=== PATIENT | female | born 1945 | race Caucasian/White ===

== ENCOUNTER → 2016-09-21 | Outpatient (CLI) | payer MEDICARE, OTHER ==
--- NOTE | 2016-09-22 13:40 | MM ---
Reason for exam: screening (asymptomatic). Last mammogram was performed 2 years and 5 months ago. History: Patient is postmenopausal. Benign stereotactic core biopsy of the right breast, January 04, 2004. Benign excisional biopsy of the right breast, 2001. Took hormonal contraceptives for 6 years beginning at age 20. Physical Findings: A clinical breast exam by your physician is recommended on an annual basis and results should be correlated with mammographic findings. MG 3D Screening Mammo W/Cad Bilateral CC and MLO view(s) were taken. Prior study comparison: May 01, 2014, bilateral MG screening mammo w CAD. September 10, 2012, bilateral digital screening mammo w/CAD. The breast tissue is heterogeneously dense. This may lower the sensitivity of mammography. Previous mammotome biopsy in the right breast. There is no discrete abnormality. ASSESSMENT: Incomplete: need additional imaging evaluation, BI-RAD 0 RECOMMENDATION: Ultrasound of the right breast. (palpable by patient) [facility] will attempt to contact patient to return for ultrasound.
== END | disposition home or self-care (01) ==
LOC: RADMAMWWP 09:53
PROVIDERS: ATTEND Family Medicine
DX: Z12.31 Encounter for screening mammogram for malignant neoplasm of breast (principal)
CPT/HCPCS: 77063; G0202

== ENCOUNTER → 2016-10-05 | Outpatient (CLI) | payer MEDICARE, OTHER ==
--- NOTE | 2016-10-05 10:30 | USB ---
Reason for exam: additional evaluation requested from abnormal screening. History: Patient is postmenopausal. Benign stereotactic core biopsy of the right breast, January 04, 2004. Benign excisional biopsy of the right breast, 2001. Took hormonal contraceptives for 6 years beginning at age 20. Physical Findings: Nurse did not find any significant physical abnormalities on exam. US Breast RT Right breast ultrasound demonstrates a 0.5 x 0.5 x 0.1cm oval, ductal, hypoechoic lesion at 10 o'clock. These results were verbally communicated with the patient and result sheet given to the patient on 10/05/16. ASSESSMENT: Benign, BI-RAD 2 RECOMMENDATION: Return to routine screening mammogram schedule for both breasts. Manage patient on a clinical basis.
== END | disposition home or self-care (01) ==
LOC: RADUSWWP 08:13
PROVIDERS: ATTEND Family Medicine
DX: R92.8 Other abnormal and inconclusive findings on diagnostic imaging of breast (principal)

== ENCOUNTER → 2017-04-10 | Outpatient (CLI) | payer MEDICARE, OTHER ==
--- NOTE | 2017-04-10 15:07 | CT ---
EXAMINATION TYPE: CT chest wo con DATE OF EXAM: 04/10/2017 COMPARISON: NONE HISTORY: Other forms of dyspnea CT DLP: 568 mGycm, Automated exposure control for dose reduction was used. CONTRAST: Performed injected with 0 mL of Omnipaque 350. TECHNIQUE: Axial images were obtained at 5 mm thick sections. Reconstructed images are reviewed on [employer] computer in the coronal plane. FINDINGS: Portion of the thyroid visualized is normal. No suspicious lung nodules or focal infiltrates are present. Tracheobronchial tree appears normal. Ve ry subtle peripheral 0.2 cm thickening may be present in the posterior right lung base. Series 4 imag e 34. 0.2 cm punctate nodule, series 4 image 27, may be present. No enlarged mediastinal or hilar adenopathy is evident. The ascending aorta diameter at the level o f the main pulmonary artery is 3.5 cm. The main pulmonary artery diameter at the bifurcation is 3.[address] sections are obtained through the upper abdomen. Abdomen is essentially unremarkable. IMPRESSIONS: 1. Very minimal findings and otherwise normal CT chest. Follow-up exam in one year could be performed .
== END | disposition home or self-care (01) ==
LOC: RADCTMAIN 13:53
PROVIDERS: ATTEND Physician Assistant
DX: R06.09 Other forms of dyspnea (principal)
CPT/HCPCS: 71250

== ENCOUNTER → 2018-08-14 | Outpatient (CLI) | payer MEDICARE, OTHER ==
--- NOTE | 2018-08-14 11:26 | MM ---
Reason for exam: screening (asymptomatic). Last mammogram was performed 1 year and 11 months ago. History: Patient is postmenopausal. Benign stereotactic core biopsy of the right breast, January 04, 2004. Benign excisional biopsy of the right breast, 2001. Took hormonal contraceptives for 6 years beginning at age 20. Physical Findings: A clinical breast exam by your physician is recommended on an annual basis and results should be correlated with mammographic findings. MG 3D Screening Mammo W/Cad Bilateral CC and MLO view(s) were taken. Prior study comparison: September 21, 2016, bilateral MG 3d screening mammo w/cad. May 01, 2014, bilateral MG screening mammo w CAD. The breast tissue is heterogeneously dense. This may lower the sensitivity of mammography. There are benign appearing round calcifications bilaterally. Previous mammotome biopsy in the right breast. There is no discrete abnormality. ASSESSMENT: Benign, BI-RAD 2 RECOMMENDATION: Routine screening mammogram of both breasts in 1 year.
== END | disposition home or self-care (01) ==
LOC: RADMAMWWP 07:22
PROVIDERS: ATTEND Physician Assistant
DX: Z12.31 Encounter for screening mammogram for malignant neoplasm of breast (principal)
CPT/HCPCS: 77063; 77067

== ENCOUNTER 2019-03-10 12:08 | Emergency (ER) | payer MEDICARE, OTHER ==
[2019-03-10] MEDS ORDERED: LIDOCAINE 1% INJ 10MG/ML (20 ML MDV) SQ ONE (13:48)
--- NOTE | 2019-03-10 14:23 | XR ---
EXAMINATION TYPE: XR finger RT DATE OF EXAM: 03/10/2019 COMPARISON: NONE HISTORY: Pain TECHNIQUE: 3 views obtained FINDINGS: There is a hairline fracture through the tuft of the distal phalanx third digit. Hypertroph ic change of the DIP joint. No erosive changes. There also is a deformity along the volar plate of th e middle phalanx third digit. IMPRESSION: 1. Findings suggestive of hairline fracture through the tuft distal phalanx third digit. 2. Findings suggestive of a volar plate fracture base middle phalanx third digit
--- NOTE | 2019-03-10 14:24 | XR ---
EXAMINATION TYPE: XR shoulder complete RT DATE OF EXAM: 03/10/2019 COMPARISON: NONE HISTORY: Pain TECHNIQUE: Three views are submitted. FINDINGS: The osseous structures are intact. There is no acute fracture or dislocation. Arthropathy of the AC joint. IMPRESSION: 1. AC joint arthropathy
[2019-03-10] MEDS ORDERED: DIPH,PERTUS(ACELL)TETVAC-LF 0.5 ML VIAL IM ONE (14:55)
[2019-03-10] MEDS ORDERED: ceFAZolin 1,000 MG VIAL (IM USE) IM STA (14:55)
--- NOTE | 2019-03-10 15:37 | ED ---
Wound/Laceration HPI - General Chief Complaint: Wound/Laceration Stated Complaint: trip & fall/finger lac & shoulder pain Time Seen by Provider: 03/10/19 12:54 Source: patient, RN notes reviewed Mode of arrival: ambulatory Limitations: no limitations - History of Present Illness Initial Comments: 73-year-old female presents to the emergency department for chief clear laceration to the right third digit. Patient was out walking when she tripped and fell forward onto her right finger. Patient also complaining of right shoulder pain. Patient did not hit her head or sustain any other injuries. Patient has not attempted incision history denies blood thinner use.Patient has no other complaints at this time including shortness of breath, chest pain, abdominal pain, nausea or vomiting, headache, or visual changes. - Related Data Home Medications Medication Instructions Recorded Confirmed Atorvastatin [Lipitor] 10 mg PO HS 04/07/15 04/09/15 Lisinopril [Prinivil] 10 mg PO HS 04/07/15 04/09/15 Previous Rx's Medication Instructions Recorded Cephalexin [Keflex] 500 mg PO Q6HR 7 Days #28 cap 03/10/19 Allergies Allergy/AdvReac Type Severity Reaction Status Date / Time No Known Allergies Allergy Verified 04/07/15 10:24 Review of Systems ROS Statement: Those systems with pertinent positive or pertinent negative responses have been documented in the HPI. ROS Other: All systems not noted in ROS Statement are negative. Past Medical History Past Medical History: Hyperlipidemia, Hypertension Additional Past Medical History / Comment(s): HX COLON POLYPS History of Any Multi-Drug Resistant Organisms: None Reported Past Surgical History: Hysterectomy Additional Past Surgical History / Comment(s): COLONOSCOPY Past Anesthesia/Blood Transfusion Reactions: No Reported Reaction Past Psychological History: No Psychological Hx Reported Smoking Status: Never smoker Past Alcohol Use History: None Reported Past Drug Use History: None Reported - Past Family History Mother Family Medical History: Cancer Additional Family Medical History / Comment(s): ESOPHAGUS Father Family Medical History: Cancer Additional Family Medical History / Comment(s): LUNG,BRAIN General Exam - General Exam Comments Initial Comments: Right shoulder: Patient has 90 flexion and abduction of the right shoulder. Radial pulse 2+. No significant tenderness or no abrasions or lacerations noted. Sensation intact in the right upper extremity. Limitations: no limitations General appearance: alert, in no apparent distress Head exam: Present: atraumatic, normocephalic, normal inspection Eye exam: Present: normal appearance, PERRL, EOMI. Absent: scleral icterus, conjunctival injection, periorbital swelling ENT exam: Present: normal exam, mucous membranes moist Neck exam: Present: normal inspection. Absent: tenderness, meningismus, lymphadenopathy Respiratory exam: Present: normal lung sounds bilaterally. Absent: respiratory distress, wheezes, rales, rhonchi, stridor Cardiovascular Exam: Present: regular rate, normal rhythm, normal heart sounds. Absent: systolic murmur, diastolic murmur, rubs, gallop, clicks GI/Abdominal exam: Present: soft, normal bowel sounds. Absent: distended, tenderness, guarding, rebound, rigid Extremities exam: Present: full ROM (Full range of motion of the right third digit including MCP, PIP, DIP joints.), normal capillary refill (Capillary refill less than 2 seconds in the right upper extremity including the third finger.), other (Patient has a 1 cm laceration noted to the distal aspect of the right third digit. Nail bed appears intact.). Absent: tenderness, pedal edema, joint swelling, calf tenderness Back exam: Absent: CVA tenderness (R), CVA tenderness (L), vertebral tenderness Neurological exam: Present: alert Course Vital Signs 03/10/19 12:13 Temperature 97.9 F Pulse Rate 80 Respiratory 18 Rate Blood Pressure 154/82 O2 Sat by Pulse 97 Oximetry Medical Decision Making - Medical Decision Making X-ray of the right finger shows a hairline fracture through the tuft of the distal phalanx of the right finger as well as volar plate fracture of the base of the middle phalanx third digit. I do not think that superficial laceration is communicating with this and it is unlikely to be open fracture. However patient was treated with Ancef and tetanus given the laceration. She will also be treated with oral antibiotics. Wound was repaired using simple interrupted sutures. She will follow up with orthopedics. She'll return here if she has any worsening symptoms. These were discussed with her including those for infection. Disposition Clinical Impression: Laceration, Fracture of distal phalanx of finger of right hand Disposition: HOME SELF-CARE Condition: Good Instructions (If sedation given, give patient instructions): Laceration (ED), Care For Your Stitches (ED) Additional Instructions: Please keep the area clean. Do not submerge it in water for 24-48 hours. Wear splint. Take antibiotic as directed starting tomorrow. Follow up with orthopedics in one to 2 days. Return to the emergency department in 7-10 days for suture removal. Return earlier for any signs of infection such as spreading streaking redness, drainage, or fever. Prescriptions: Cephalexin [Keflex] 500 mg PO Q6HR 7 Days #28 cap Is patient prescribed a controlled substance at d/c from ED?: No Referrals: Champ Nieto MD [Primary Care Provider] - 1-2 days Sandro Ty DO [Medical Doctor] - 1-2 days Time of Disposition: 15:34
[2019-03-10 15:52] VITALS: BP 161/75; PULSE 84; RESP 16; TEMP 98
== END 2019-03-10 15:50 | disposition home or self-care (01) ==
LOC: EC 12:08
DX: S62.632A Displaced fracture of distal phalanx of right middle finger, initial encounter for closed fracture (principal); S61.212A Laceration without foreign body of right middle finger without damage to nail, initial encounter; Z23 Encounter for immunization; I10 Essential (primary) hypertension; E78.5 Hyperlipidemia, unspecified; Z79.899 Other long term (current) drug therapy; W01.0XXA Fall on same level from slipping, tripping and stumbling without subsequent striking against object, initial encounter; Y93.01 Activity, walking, marching and hiking
CPT/HCPCS: 73030; 73140; 90715; 99283; 90471; 96372; 12001; J0690; J2001

== ENCOUNTER → 2019-04-28 | Outpatient (CLI) | payer MEDICARE, OTHER | END | disposition home or self-care (01) | LOC: RADECHMAIN 11:54 | PROVIDERS: ATTEND Family Medicine | DX: Z53.9 Procedure and treatment not carried out, unspecified reason (principal) ==

== ENCOUNTER → 2019-08-08 | Outpatient (CLI) | payer MEDICARE, OTHER ==
--- NOTE | 2019-08-21 14:11 | EM ---
EVENT MONITOR 7 DAY EVENT MONITOR: The event monitor was reviewed. Predominant rhythm appears to be sinus. There were occasional supraventricular ectopic beats noted. There was one episode of paroxysmal atrial tachycardia noted of about 4-5 beats in a row. Most of the rhythm that was captured was by auto capture. There was no evidence of any ventricular ectopic beats. There was some blocked PACs. This is an unremarkable seven-day event monitor with predominant sinus rhythm. Short run of PAT. No evidence of any ventricular ectopy, no bradycardia and no significant symptoms reported. MMODL / IJN: [id number] /
== END | disposition home or self-care (01) ==
LOC: RADECHMAIN 10:35
PROVIDERS: ATTEND Family Medicine
DX: R06.00 Dyspnea, unspecified (principal)
CPT/HCPCS: 93270

== ENCOUNTER 2020-04-07 11:26 | Observation (INO) | payer MEDICARE, OTHER ==
[2020-04-07] MEDS ORDERED: PANTOPRAZOLE 40 MG/10 ML VIAL IVP STA (12:01)
[2020-04-07] MEDS ORDERED: SODIUM CHLORIDE 0.9% 500 ML 500 ML IV ONE (12:02)
--- NOTE | 2020-04-07 12:41 | ED ---
GI Bleed HPI - General Chief complaint: GI Bleed Stated complaint: GI Bleed/abd pain Time Seen by Provider: 04/07/20 11:53 Source: patient Mode of arrival: ambulatory Limitations: no limitations - History of Present Illness Initial comments: 74yo female presenting for multiple epsidoes of bright red blood wtih lower abdominal cramping. pt states she has had lower abdominal cramping for past day as well as bright red all blood stools. she states she has had multiple yesterday and again this AM and decided to come to the ER. Pt states that her lower abdomen feels full. Patient denies nausea, vomiting, fevers, denies known history of diverticulosis. Patient denies fevers chills nausea or vomiting. Denies lightheadedness presyncope palpitations cold intolerance, dark tarry stools and emesis. Patient does not appear toxic no distress she is very pleasant - Related Data Home Medications Medication Instructions Recorded Confirmed Atorvastatin [Lipitor] 10 mg PO HS 04/07/15 04/07/20 Lisinopril [Prinivil] 10 mg PO HS 04/07/15 04/07/20 Ascorbic Acid [Vitamin C] 500 mg PO DAILY 04/07/20 04/07/20 Calcium Carbonate [Calcium] 600 mg PO DAILY 04/07/20 04/07/20 Cholecalciferol [Vitamin D3 (25 1,000 unit PO DAILY 04/07/20 04/07/20 Mcg = 1000 Iu)] Allergies Allergy/AdvReac Type Severity Reaction Status Date / Time No Known Allergies Allergy Verified 04/07/20 14:46 Review of Systems ROS Statement: Those systems with pertinent positive or pertinent negative responses have been documented in the HPI. ROS Other: All systems not noted in ROS Statement are negative. Past Medical History Past Medical History: Hyperlipidemia, Hypertension Additional Past Medical History / Comment(s): HX COLON POLYPS History of Any Multi-Drug Resistant Organisms: None Reported Past Surgical History: Hysterectomy Additional Past Surgical History / Comment(s): COLONOSCOPY Past Anesthesia/Blood Transfusion Reactions: No Reported Reaction Past Psychological History: No Psychological Hx Reported Smoking Status: Never smoker Past Alcohol Use History: None Reported Past Drug Use History: None Reported - Past Family History Mother Family Medical History: Cancer Additional Family Medical History / Comment(s): ESOPHAGUS Father Family Medical History: Cancer Additional Family Medical History / Comment(s): LUNG,BRAIN General Exam - General Exam Comments Initial Comments: General: The patient is awake and alert, in no distress Eye: +3 mm pupils are equal, round and reactive to light, extra-ocular movements are intact. No nystagmus. There is normal conjunctiva bilaterally. No signs of icterus. Ears, nose, mouth and throat: There are moist mucous membranes and no oral lesions. Neck: The neck is supple, there is no tenderness or JVD. Cardiovascular: There is a regular rate and rhythm. No murmur, rub or gallop is appreciated. Respiratory: Lungs are clear to auscultation, respirations are non-labored, breath sounds are equal. No wheezes, stridor, rales, or rhonchi. Gastrointestinal: Soft, non-distended, lower abdominal pain to palpation, abdomen without masses or organomegaly noted. There is no rebound or guarding present : faint bright red blood on digit mixed with stool. no hemorrhoids Musculoskeletal: Normal ROM, no tenderness. Strength 5/5. Sensation intact. Radial pulses equal bilaterally 2+. Neurological: A&O x 3. CN II-XII intact, There are no obvious motor or sensory deficits. Coordination appears grossly intact. Speech is normal. Skin: Skin is warm and dry and no rashes or lesions are noted. Psychiatric: Cooperative, appropriate mood & affect, normal judgment. Limitations: no limitations Course Vital Signs 04/07/20 04/07/20 04/07/20 11:47 12:57 14:29 Temperature 98.2 F Pulse Rate 95 78 70 Respiratory 18 18 18 Rate Blood Pressure 144/81 138/77 130/70 O2 Sat by Pulse 99 98 99 Oximetry Medical Decision Making - Medical Decision Making HgB stable. bright red blood on exam. CT revealed a diffuse severe colitis. Patient denies fever she has mild leukocytosis. Patient denies any nausea vomiting. Patient was placed on Zosyn. Patient will be admitted for GI consultation and hemodynamic monitoring. Dr. Weeks accepted patient. Dr Menjivar agreeable to care plan. - Lab Data Result diagrams: 04/07/20 12:31 04/07/20 12:31 Lab Results 04/07/20 04/07/20 04/07/20 Range/Units 12:31 12:31 12:31 WBC 11.7 H (3.8-10.6) k/uL RBC 4.84 (3.80-5.40) m/uL Hgb 15.4 (11.4-16.0) gm/dL Hct 44.5 (34.0-46.0) % MCV 91.8 (80.0-100.0) fL MCH 31.8 (25.0-35.0) pg MCHC 34.6 (31.0-37.0) g/dL RDW 13.0 (11.5-15.5) % Plt Count 240 (150-450) k/uL MPV 7.0 Neutrophils % 78 % Lymphocytes % 14 % Monocytes % 5 % Eosinophils % 2 % Basophils % 1 % Neutrophils # 9.1 H (1.3-7.7) k/uL Lymphocytes # 1.6 (1.0-4.8) k/uL Monocytes # 0.6 (0-1.0) k/uL Eosinophils # 0.2 (0-0.7) k/uL Basophils # 0.1 (0-0.2) k/uL PT 10.2 (9.0-12.0) sec INR 0.9 (<1.2) APTT 22.2 (22.0-30.0) sec Sodium (137-145) mmol/L Potassium (3.5-5.1) mmol/L Chloride (98-107) mmol/L Carbon Dioxide (22-30) mmol/L Anion Gap mmol/L BUN (7-17) mg/dL Creatinine (0.52-1.04) mg/dL Est GFR (CKD-EPI)AfAm (>60 ml/min/1.73 sqM) Est GFR (CKD-EPI)NonAf (>60 ml/min/1.73 sqM) Glucose (74-99) mg/dL Plasma Lactic Acid Emerson (0.7-2.0) mmol/L Calcium (8.4-10.2) mg/dL Magnesium (1.6-2.3) mg/dL Total Bilirubin (0.2-1.3) mg/dL AST (14-36) U/L ALT (4-34) U/L Alkaline Phosphatase (38-126) U/L Troponin I (0.000-0.034) ng/mL Total Protein (6.3-8.2) g/dL Albumin (3.5-5.0) g/dL Stool Occult Blood Positive H (Negative) Blood Type Blood Type Recheck Bld Type Recheck Status Antibody Screen Spec Expiration Date 04/07/20 04/07/20 04/07/20 Range/Units 12:31 12:31 12:31 WBC (3.8-10.6) k/uL RBC (3.80-5.40) m/uL Hgb (11.4-16.0) gm/dL Hct (34.0-46.0) % MCV (80.0-100.0) fL MCH (25.0-35.0) pg MCHC (31.0-37.0) g/dL RDW (11.5-15.5) % Plt Count (150-450) k/uL MPV Neutrophils % % Lymphocytes % % Monocytes % % Eosinophils % % Basophils % % Neutrophils # (1.3-7.7) k/uL Lymphocytes # (1.0-4.8) k/uL Monocytes # (0-1.0) k/uL Eosinophils # (0-0.7) k/uL Basophils # (0-0.2) k/uL PT (9.0-12.0) sec INR (<1.2) APTT (22.0-30.0) sec Sodium 141 (137-145) mmol/L Potassium 4.2 (3.5-5.1) mmol/L Chloride 108 H (98-107) mmol/L Carbon Dioxide 24 (22-30) mmol/L Anion Gap 9 mmol/L BUN 21 H (7-17) mg/dL Creatinine 0.76 (0.52-1.04) mg/dL Est GFR (CKD-EPI)AfAm >90 (>60 ml/min/1.73 sqM) Est GFR (CKD-EPI)NonAf 79 (>60 ml/min/1.73 sqM) Glucose 137 H (74-99) mg/dL Plasma Lactic Acid Emerson 1.3 (0.7-2.0) mmol/L Calcium 10.1 (8.4-10.2) mg/dL Magnesium 2.1 (1.6-2.3) mg/dL Total Bilirubin 0.5 (0.2-1.3) mg/dL AST 51 H (14-36) U/L ALT 52 H (4-34) U/L Alkaline Phosphatase 71 (38-126) U/L Troponin I <0.012 (0.000-0.034) ng/mL Total Protein 7.9 (6.3-8.2) g/dL Albumin 4.6 (3.5-5.0) g/dL Stool Occult Blood (Negative) Blood Type Blood Type Recheck Bld Type Recheck Status Antibody Screen Spec Expiration Date 04/07/20 Range/Units 12:31 WBC (3.8-10.6) k/uL RBC (3.80-5.40) m/uL Hgb (11.4-16.0) gm/dL Hct (34.0-46.0) % MCV (80.0-100.0) fL MCH (25.0-35.0) pg MCHC (31.0-37.0) g/dL RDW (11.5-15.5) % Plt Count (150-450) k/uL MPV Neutrophils % % Lymphocytes % % Monocytes % % Eosinophils % % Basophils % % Neutrophils # (1.3-7.7) k/uL Lymphocytes # (1.0-4.8) k/uL Monocytes # (0-1.0) k/uL Eosinophils # (0-0.7) k/uL Basophils # (0-0.2) k/uL PT (9.0-12.0) sec INR (<1.2) APTT (22.0-30.0) sec Sodium (137-145) mmol/L Potassium (3.5-5.1) mmol/L Chloride (98-107) mmol/L Carbon Dioxide (22-30) mmol/L Anion Gap mmol/L BUN (7-17) mg/dL Creatinine (0.52-1.04) mg/dL Est GFR (CKD-EPI)AfAm (>60 ml/min/1.73 sqM) Est GFR (CKD-EPI)NonAf (>60 ml/min/1.73 sqM) Glucose (74-99) mg/dL Plasma Lactic Acid Emerson (0.7-2.0) mmol/L Calcium (8.4-10.2) mg/dL Magnesium (1.6-2.3) mg/dL Total Bilirubin (0.2-1.3) mg/dL AST (14-36) U/L ALT (4-34) U/L Alkaline Phosphatase (38-126) U/L Troponin I (0.000-0.034) ng/mL Total Protein (6.3-8.2) g/dL Albumin (3.5-5.0) g/dL Stool Occult Blood (Negative) Blood Type B Positive Blood Type Recheck B Pos Bld Type Recheck Status No Antibody Screen NEGATIVE Spec Expiration Date 04/10/2020 - 2330 Disposition Clinical Impression: GI bleed, Colitis Disposition: ADMITTED IP TO THIS [facility] Condition: Stable Is patient prescribed a controlled substance at d/c from ED?: No Time of Disposition: 14:48 Decision to Admit Reason: Admit from EC Decision Date: 04/07/20 Decision Time: 14:48
[2020-04-07 12:48] LABS: Basophils # (A) 0.1 k/uL (0-0.2); Basophils % (A) 1 %; Eosinophils # (A) 0.2 k/uL (0-0.7); Eosinophils % (A) 2 %; HCT 44.5 % (34.0-46.0); HGB 15.4 gm/dL (11.4-16.0); Lymphocytes # (A) 1.6 k/uL (1.0-4.8); Lymphocytes % (A) 14 %; MCH 31.8 pg (25.0-35.0); MCHC 34.6 g/dL (31.0-37.0); MCV 91.8 fL (80.0-100.0); Monocytes # (A) 0.6 k/uL (0-1.0); Monocytes % (A) 5 %; Neutrophils # (A) 9.1 k/uL (1.3-7.7); Neutrophils % (A) 78 %; Platelet Count 240 k/uL (150-450); RBC 4.84 m/uL (3.80-5.40); WBC 11.7 k/uL (3.8-10.6)
[2020-04-07] MEDS: SODIUM CHLORIDE 0.9% 1,000 ML IV SCH ×2 (12:50→20:56)
[2020-04-07 12:57] LABS: INR 0.9 (<1.2); Partial Thromboplastin Time 22.2 sec (22.0-30.0); Prothrombin Time 10.2 sec (9.0-12.0)
[2020-04-07 13:06] LABS: ALT 52 U/L (4-34); AST 51 U/L (14-36); African American GFR (CKD) >90 (>60 ml/min/1.73 sqM); Albumin 4.6 g/dL (3.5-5.0); Alkaline Phosphatase 71 U/L (38-126); Anion Gap 9 mmol/L; Blood Urea Nitrogen 21 mg/dL (7-17); Calcium 10.1 mg/dL (8.4-10.2); Carbon Dioxide 24 mmol/L (22-30); Chloride 108 mmol/L (98-107); Glucose 137 mg/dL (74-99); Magnesium 2.1 mg/dL (1.6-2.3); Non-African American GFR(CKD) 79 (>60 ml/min/1.73 sqM); Potassium 4.2 mmol/L (3.5-5.1); Sodium 141 mmol/L (137-145); Total Bilirubin 0.5 mg/dL (0.2-1.3); Total Protein 7.9 g/dL (6.3-8.2)
--- NOTE | 2020-04-07 14:37 | CT ---
EXAMINATION TYPE: CT abdomen pelvis w con DATE OF EXAM: 04/07/2020 HISTORY: Bright red rectal bleeding and abdominal pain. CT DLP: 1018.7mGycm Automated Exposure Control for Dose Reduction was Utilized. CONTRAST: CT scan of the abdomen and pelvis is performed without oral but with IV Contrast, patient injected wi th 100 mL of Isovue 300. COMPARISON: None. FINDINGS: LUNG BASES: No significant abnormality is appreciated. LIVER/GB: Visualized liver is heterogeneously hypodense consistent with marked diffuse fatty infiltra tion. PANCREAS: No significant abnormality is seen. SPLEEN: No significant abnormality is seen. ADRENALS: No significant abnormality is seen. KIDNEYS: Symmetric cortical medullary uptake and excretion . Occasionally subcentimeter thin-walled c ysts scattered throughout the left kidney. No left-sided hydronephrosis. Fullness right renal pelvis without calyceal dilatation. Mild proximal right-sided hydroureter. Occasional phlebolith along cours e of the right ureter. No obstructing calculus. No intraluminal calculus in bladder. BOWEL: Suboptimal evaluation without enteric contrast. Stomach poorly distended and is thus suboptima lly evaluated. Some scattered colonic diverticula. Mild to moderate wall thickening beginning hepatic flexure into the distal transverse colon. There is more moderate to severe wall thickening distal tr ansverse colon through the splenic flexure involving entire left colon. More mild wall thickening is seen in the sigmoid rectal colon. Mild fat stranding surrounds left colon. No free air. No well-forme d fluid collection. UTERUS/ADNEXA: Uterus is surgically absent with scattered bilateral pelvic phleboliths. LYMPH NODES: Prominent precaval lymph node near portal confluence measuring 2.0 x 1.2 cm/31. No addit ional greater than 1 cm lymph nodes. OSSEOUS STRUCTURES: Hogl-fo-usmdeocy axial joint space loss and acetabular spurring of both hips. Mil q-ni-usueuvry multilevel spurring in the spine. OTHER: No significant additional abnormality is seen. IMPRESSION: 1. An uncomplicated fairly moderate acute diffuse colitis with greatest involvement in the distal tra nsverse and entire left colon. Differential includes infectious and inflammatory etiologies. Correlat e clinically.
[2020-04-07] MEDS ORDERED: PIPERACILLIN-TAZOBACTAM 3.375 GM in SODIUM CHLORIDE 0.9% 100 ML IVPB STA (14:38)
[2020-04-07] MEDS ORDERED: NALOXONE 0.4 MG/ML 1 ML VIAL IV PRN (14:48)
[2020-04-07] MEDS ORDERED: MORPHINE SULFATE 2 MG/ML SYRINGE IVP PRN (14:49)
[2020-04-07] MEDS ORDERED: ONDANSETRON 4 MG/2 ML VIAL IVP PRN (14:49)
[2020-04-07 16:22] LABS: Basophils % (A) 0 %; Eosinophils # (A) 0.2 k/uL (0-0.7); Eosinophils % (A) 2 %; HCT 41.5 % (34.0-46.0); HGB 14.1 gm/dL (11.4-16.0); Lymphocytes # (A) 2.2 k/uL (1.0-4.8); Lymphocytes % (A) 20 %; MCH 31.4 pg (25.0-35.0); MCHC 33.9 g/dL (31.0-37.0); MCV 92.6 fL (80.0-100.0); Mean Platelet Volume 7.3; Monocytes # (A) 0.5 k/uL (0-1.0); Monocytes % (A) 4 %; Neutrophils # (A) 7.8 k/uL (1.3-7.7); Neutrophils % (A) 72 %; Platelet Count 195 k/uL (150-450); RBC 4.48 m/uL (3.80-5.40); WBC 10.9 k/uL (3.8-10.6)
[2020-04-07] MEDS: ATORVASTATIN 10 MG TAB PO SCH (20:55)
[2020-04-07] MEDS: lisinopriL 10 MG TAB PO SCH (20:55)
[2020-04-08] MEDS: SODIUM CHLORIDE 0.9% 1,000 ML IV SCH ×3 (03:51→20:06)
[2020-04-08 11:15] LABS: Basophils % (A) 0 %; Eosinophils # (A) 0.3 k/uL (0-0.7); Eosinophils % (A) 3 %; HGB 13.5 gm/dL (11.4-16.0); Lymphocytes # (A) 1.6 k/uL (1.0-4.8); Lymphocytes % (A) 19 %; MCHC 32.2 g/dL (31.0-37.0); MCV 93.3 fL (80.0-100.0); Mean Platelet Volume 7.4; Monocytes # (A) 0.3 k/uL (0-1.0); Monocytes % (A) 3 %; Neutrophils # (A) 5.9 k/uL (1.3-7.7); Neutrophils % (A) 72 %; Platelet Count 209 k/uL (150-450); RDW 13.4 % (11.5-15.5); WBC 8.2 k/uL (3.8-10.6)
[2020-04-08] MEDS: CALCIUM CARBONATE 500 MG CHEWABLE PO SCH (12:11)
[2020-04-08] MEDS: CHOLECALCIFEROL 1,000 UNIT TAB PO SCH (12:11)
[2020-04-08] MEDS: ASCORBIC ACID 500 MG TAB PO SCH (12:11)
--- NOTE | 2020-04-08 12:26 | CONS ---
CONSULTATION DATE OF DICTATION: 04/08/2020 REASON FOR CONSULTATION: Acute colitis. HISTORY OF PRESENT ILLNESS: The patient is a 74-year-old pleasant white female came to the emergency room complaining of acute onset of lower abdominal pain that started on Sunday evening. The pain continued to progressively get worse followed by multiple episodes of bright red blood per rectum and hence came to the emergency room yesterday for further evaluation. She denies any fever, chills, or night sweats. She never had these symptoms in the past. In the ER, she had a CT of the abdomen and pelvis done that showed there was mild to moderate wall thickening beginning at the hepatic flexure into the distal transverse colon and the entire left colon consistent with acute colitis. In the meantime, patient is doing much better. This morning her abdominal pain has improved. She had only 2 bowel movements this morning. Yesterday she had about 3 or 4 bloody bowel movements. She never had these symptoms in the past. Her last colonoscopy in 2015 showed diverticulosis. She denies any recent antibiotic use. MEDICATIONS: Medications at home include Prinivil, calcium, Lipitor, vitamin C, and vitamin D3. PAST MEDICAL HISTORY: Hypertension, hyperlipidemia. ALLERGIES: No known drug allergies. SOCIAL HISTORY: No smoking, no alcohol use. FAMILY HISTORY: Unremarkable. PAST SURGICAL HISTORY: Colonoscopy 2016 and hysterectomy. REVIEW OF SYSTEMS: CARDIOPULMONARY: No chest pain or shortness of breath. GENITOURINARY: No dysuria or hematuria. MUSCULOSKELETAL: Unremarkable. SKIN: Unremarkable. ENDOCRINE: Unremarkable. PSYCHIATRIC: Unremarkable. NEUROLOGY: Unremarkable. ENT/VISION: Unremarkable. CONSTITUTIONAL: No recent weight loss. No fever, chills, night sweats. PHYSICAL EXAMINATION: Blood pressure 131/75, pulse rate 60, temperature 97.6. HEENT EXAMINATION: Unremarkable. Conjunctivae pink. Sclerae anicteric. Oral cavity no lesions. NECK: No JVD or lymph node enlargement. CHEST: Clear to auscultation. HEART: Regular rate and rhythm. ABDOMEN: Soft. There was very minimal tenderness in the left lower quadrant area. Rest of the abdomen was benign. Bowel sounds are positive. EXTREMITIES: No pedal edema. SKIN: No rashes. NEUROLOGIC: Alert and oriented x3. No focal deficits. LABS: WBC 11.7, hemoglobin 15.4, platelets normal. Basic metabolic panel is within normal limits. BUN 21, creatinine 0.76. AST and ALT are 51 and 52 respectively and stool occult blood was positive. CT of the abdomen showed [id number] wall thickening involving the hepatic flexure all the way to the transverse colon and the left colon consistent with acute colitis. IMPRESSION: This is a lady who presents with acute onset of lower abdominal pain followed by rectal bleeding for the last 2 days duration and CAT scan showing thickening of the transverse colon and left colon all consistent with acute colitis most likely ischemic etiology, doubt infectious colitis. The patient symptoms have significantly improved and she is feeling much better. The bleeding has resolved. Hemoglobin remains stable at 14.1 g/dL. Last colonoscopy done by me in April 2015 showed evidence of scattered sigmoid diverticulosis but no evidence of colorectal neoplasia. RECOMMENDATIONS: 1. Advance diet as tolerated. 2. Continue symptomatic and supportive care. 3. If she has no further episodes of bleeding, she can be discharged home later today or tomorrow with outpatient followup in a couple of weeks and we will plan on a colonoscopy on outpatient basis. The plan was discussed with the patient. She is agreeable to it. Thank you for this consultation. MMODL / IJN: [id number] /
[2020-04-08] MEDS: PIPERACILLIN-TAZOBACTAM 3.375 GM in SODIUM CHLORIDE 0.9% 100 ML IVPB SCH ×2 (13:29→20:12)
--- NOTE | 2020-04-08 18:13 | P.HPIM ---
History of Present Illness H&P Date: 04/08/20 Chief Complaint: Bright red blood per rectum History of presenting complaint: This is a very pleasant 74-year-old patient of . Chronic stable medical conditions include hypertension, hyperlipidemia, insomnia. 2 days ago she started having abdominal pain on and off. Then she noticed big clots per rectum. Having chills and breaking out in no perspiration. Decided to come to the ER. Computed tomography scan did show colitis. Given IV Zosyn. No nausea vomiting. Feeling better this morning. Review of systems: GEN.: Tired EYES: None HEENT: None NECK: None RESPIRATORY: None CARDIOVASCULAR: None GASTROINTESTINAL: As above GENITOURINARY: None MUSCULOSKELETAL: None LYMPHATICS: None HEMATOLOGICAL: None PSYCHIATRY: None NEUROLOGICAL: Trouble sleeping Past medical history to include: Hypertension, hyperlipidemia, colon polyps, insomnia Social history: Lives alone. Does not smoke or drink alcohol. Physical examination: VITAL SIGNS: 98.2, 95, 18, 144/81, 99% room air GENERAL: BMI 32.1, laying in bed, not in distress. EYES: Pupils equal. Conjunctiva normal. HEENT: External appearance of nose and ears normal, oral cavity grossly normal. NECK: JVD not raised; masses not palpable. HEART: First and second heart sounds are normal; no edema. LUNGS: Respiratory rate normal; clear to auscultation. ABDOMEN: Soft, mild tenderness, no guarding rigidity, liver spleen not palpable, no masses palpable. PSYCH: Alert and oriented x3; mood and affect normal. NEUROLOGICAL: Cranial nerves grossly intact; no facial asymmetry, power and sensation grossly intact. LYMPHATICS: No lymph nodes palpable in the axilla and neck INVESTIGATIONS, reviewed in the clinical context: White count 11.7 hemoglobin 13.4 platelets 240 potassium 4.2 creatinine 0.76 Stool occult positive Computed tomography scan of the abdomen and pelvis with contrast-some scattered colonic diverticula. Mild to moderate wall thickening beginning hepatic flexure into the distal transverse colon. More moderate to severe wall thickening distal transverse colon, through the splenic flexure involving the entire left colon. Mild fat stranding. No free air. No fluid collection. Assessment: -Acute colitis suspect ischemic cannot rule out infective cause. -Essential hypertension -Hyperlipidemia -Obesity BMI 32.1 Plan: Patient started IV Zosyn. IV fluids. Home medications resumed. GI consulted. Patient is put on a clear liquid diet. Care was discussed with the patient question also. Past Medical History Past Medical History: Hyperlipidemia, Hypertension Additional Past Medical History / Comment(s): HX COLON POLYPS History of Any Multi-Drug Resistant Organisms: None Reported Past Surgical History: Hysterectomy Additional Past Surgical History / Comment(s): COLONOSCOPY Past Anesthesia/Blood Transfusion Reactions: No Reported Reaction Past Psychological History: No Psychological Hx Reported Smoking Status: Never smoker Past Alcohol Use History: None Reported Past Drug Use History: None Reported - Past Family History Mother Family Medical History: Cancer Additional Family Medical History / Comment(s): ESOPHAGUS Father Family Medical History: Cancer Additional Family Medical History / Comment(s): LUNG,BRAIN Medications and Allergies Home Medications Medication Instructions Recorded Confirmed Type Atorvastatin [Lipitor] 10 mg PO HS 04/07/15 04/07/20 History Lisinopril [Prinivil] 10 mg PO HS 04/07/15 04/07/20 History Ascorbic Acid [Vitamin C] 500 mg PO DAILY 04/07/20 04/07/20 History Calcium Carbonate [Calcium] 600 mg PO DAILY 04/07/20 04/07/20 History Cholecalciferol [Vitamin D3 (25 1,000 unit PO DAILY 04/07/20 04/07/20 History Mcg = 1000 Iu)] Allergies Allergy/AdvReac Type Severity Reaction Status Date / Time No Known Allergies Allergy Verified 04/07/20 14:46 Physical Exam Vitals: Vital Signs Temp Pulse Pulse Resp BP BP Pulse Ox 04/08/20 07:56 97.6 F 60 14 131/75 98 04/08/20 03:55 97.7 F 61 121/69 97 04/07/20 19:45 97.5 F L 75 148/74 99 04/07/20 16:33 97.6 F 82 14 156/81 95 04/07/20 16:00 98.9 F 70 18 141/79 99 04/07/20 14:29 70 18 130/70 99 04/07/20 12:57 78 18 138/77 98 04/07/20 11:47 98.2 F 95 18 144/81 99 Intake and Output 04/07/20 04/08/20 04/08/20 22:59 06:59 14:59 Intake Total 1650 Output Total 120 Balance 1530 Intake: Amount of Fluid Infused ( 1000 ml) Oral 650 Output: Stool 120 Other: Voiding Method Toilet Toilet # Voids 1 2 1 # Bowel Movements 1 Weight 77.111 kg Results CBC & Chem 7: 04/08/20 10:54 04/07/20 12:31 Labs: Abnormal Lab Results - Last 24 Hours (Table) 04/07/20 04/07/20 04/07/20 Range/Units 12:31 12:31 12:31 WBC 11.7 H (3.8-10.6) k/uL Neutrophils # 9.1 H (1.3-7.7) k/uL Chloride 108 H (98-107) mmol/L BUN 21 H (7-17) mg/dL Glucose 137 H (74-99) mg/dL AST 51 H (14-36) U/L ALT 52 H (4-34) U/L Stool Occult Blood Positive H (Negative) 04/07/20 Range/Units 16:13 WBC 10.9 H (3.8-10.6) k/uL Neutrophils # 7.8 H (1.3-7.7) k/uL Chloride (98-107) mmol/L BUN (7-17) mg/dL Glucose (74-99) mg/dL AST (14-36) U/L ALT (4-34) U/L Stool Occult Blood (Negative) Thrombosis Risk Factor Assmnt - Choose All That Apply Any of the Below Risk Factors Present?: No Other Risk Factors: Yes Each Risk Factor Represents 2 Points: Age 61-74 years Thrombosis Risk Factor Assessment Total Risk Factor Score: 2 Thrombosis Risk Factor Assessment Level: Low Risk
[2020-04-08] MEDS: ATORVASTATIN 10 MG TAB PO SCH (20:12)
[2020-04-08] MEDS: lisinopriL 10 MG TAB PO SCH (20:12)
[2020-04-09] MEDS: SODIUM CHLORIDE 0.9% 1,000 ML IV SCH (02:54)
[2020-04-09] MEDS: PIPERACILLIN-TAZOBACTAM 3.375 GM in SODIUM CHLORIDE 0.9% 100 ML IVPB SCH (03:30)
[2020-04-09 08:19] VITALS: BP 143/63; PULSE 70; RESP 16; TEMP 98.3
[2020-04-09] MEDS: CALCIUM CARBONATE 500 MG CHEWABLE PO SCH (08:56)
[2020-04-09] MEDS: CHOLECALCIFEROL 1,000 UNIT TAB PO SCH (08:56)
[2020-04-09] MEDS: ASCORBIC ACID 500 MG TAB PO SCH (08:56)
--- NOTE | 2020-04-09 13:01 | P.PN ---
Subjective Progress Note Date: 04/09/20 Principal diagnosis: Colitis A pleasant 74-year-old lore white female patient came to the emergency room complaining of acute onset of lower abdominal pain that started Sunday evening that progressively got worse and was followed by multiple episodes of bright blood red per rectum. She has denied any further bleeding from the rectum, she denies any abdominal pain, nausea or vomiting. She is tolerating a full liquid diet. She's been afebrile. Objective - Vital Signs Vital signs: Vital Signs Temp 98.3 F 04/09/20 08:17 Pulse 70 04/09/20 08:17 Resp 16 04/09/20 08:17 BP 143/63 04/09/20 08:17 Pulse Ox 99 04/09/20 08:17 Intake & Output 04/08/20 04/09/20 04/09/20 18:59 06:59 18:59 Intake Total 900 425 Balance 900 425 Intake: Intake, IV Titration 900 390 Amount Sodium Chloride 0.9% 1, 900 390 000 ml @ 130 mls/hr IV . Q7H42M [facility] Rx#:[id number] Oral 35 Other: Voiding Method Toilet Toilet # Voids 1 1 2 - Exam General appearance: The patient is alert, oriented, in no acute distress. HET: Head is normocephalic and atraumatic. Conjunctiva pink. Sclera anicteric. Neck: Supple without lymphadenopathy. Abdomen: Soft, nontender, nondistended with bowel sounds. No guarding or rigidity. Extremities: Normal skin color and turgor. No pedal edema Neurological: No focal deficits. Alert and oriented 3. - Labs CBC & Chem 7: 04/08/20 10:54 04/07/20 12:31 Assessment and Plan (1) Colitis Narrative/Plan: The lady who presented with acute onset of lower abdominal pain followed by rectal bleeding for the last 2 days duration prior to being admitted with a CAT scan showing thickening of the transverse colon and left colon CONSISTENT with acute colitis most likely ischemic etiology, doubt infectious colitis. The patient's symptoms have significantly improved and she is feeling much better. All bleeding has resolved. Her hemoglobin has remained stable at 14.1. Last colonoscopy done in April 2015 showed evidence of scattered sigmoid di verticulosis but no evidence of colorectal neoplasia. Current Visit: Yes Status: Acute Code(s): K52.9 - NONINFECTIVE MUKUND ROENTERITIS AND COLITIS, UNSPECIFIED SNOMED Code(s): 51892488 (2) GI bleed Current Visit: Yes Status: Acute Code(s): K92.2 - GASTROINTESTINAL HEMORRHAGE, UNSPECIFIED SNOMED Code(s): 72491479 Plan: 1. May advance to low fiber diet 2. Continue symptomatic supportive care 3. Patient has had no further episodes of abdominal pain or episodes of bleeding. Patient may be discharged home with outpatient follow-up in a couple weeks. Dr. Cm Rocha I agree with the dictator's note, documented as a scribe by Oanh Boyer.
--- NOTE | 2020-04-09 23:41 | P.DS ---
Providers Date of admission: 04/07/20 14:48 Expected date of discharge: 04/09/20 Attending physician: Donny Weeks Consults: 04/07/20 14:50 Consult Physician Routine Consulting Provider: Kim Rocha Consult Reason/Comments: gi bleed,colitis Do you want consulting provider notified?: Yes, Notify in am Primary care physician: Champ Nieto [facility] Course: Chief Complaint: Bright red blood per rectum History of presenting complaint: This is a very pleasant 74-year-old patient of . Chronic stable medical conditions include hypertension, hyperlipidemia, insomnia. 2 days ago she started having abdominal pain on and off. Then she noticed big clots per rectum. Having chills and breaking out in no perspiration. Decided to come to the ER. Computed tomography scan did show colitis. Given IV Zosyn. No nausea vomiting. Patient responded well. Today-doing well. Tolerating diet. No abdominal pain. No further bleeding. Discussed with the patient. Questions answered. Follow-up with GI. Discussion and discharge planning more than 35 minutes Consultation: Dr. Cm Rocha from GI Past medical history to include: Hypertension, hyperlipidemia, colon polyps, insomnia Social history: Lives alone. Does not smoke or drink alcohol. Physical examination: VITAL SIGNS: 98.3, 70, 16, 143 x 63, 99% room air GENERAL: BMI 32.1, sitting up, comfortable. EYES: Pupils equal. Conjunctiva normal. HEENT: External appearance of nose and ears normal, oral cavity grossly normal. NECK: JVD not raised; masses not palpable. HEART: First and second heart sounds are normal; no edema. LUNGS: Respiratory rate normal; clear to auscultation. ABDOMEN: Soft, no tenderness, no guarding rigidity, liver spleen not palpable, no masses palpable. PSYCH: Alert and oriented x3; mood and affect normal. INVESTIGATIONS, reviewed in the clinical context: April 08: White count 8.2 White count 11.7 hemoglobin 13.4 platelets 240 potassium 4.2 creatinine 0.76 Stool occult positive Computed tomography scan of the abdomen and pelvis with contrast-some scattered colonic diverticula. Mild to moderate wall thickening beginning hepatic flexure into the distal transverse colon. More moderate to severe wall thickening distal transverse colon, through the splenic flexure involving the entire left colon. Mild fat stranding. No free air. No fluid collection. Assessment: -Acute colitis suspect ischemic cannot rule out infective cause. -Essential hypertension -Hyperlipidemia -Obesity BMI 32.1 Disposition: Home Patient Condition at Discharge: Stable Plan - Discharge Summary Discharge Rx Participant: No New Discharge Prescriptions: New Amoxicillin/Potassium Clav [Augmentin 875-125 Tablet] 1 tab PO Q12HR #14 tab Continue Lisinopril [Prinivil] 10 mg PO HS Atorvastatin [Lipitor] 10 mg PO HS Cholecalciferol [Vitamin D3 (25 Mcg = 1000 Iu)] 1,000 unit PO DAILY Ascorbic Acid [Vitamin C] 500 mg PO DAILY Calcium Carbonate [Calcium] 600 mg PO DAILY Discharge Medication List Atorvastatin [Lipitor] 10 mg PO HS 04/07/15 [History] Lisinopril [Prinivil] 10 mg PO HS 04/07/15 [History] Ascorbic Acid [Vitamin C] 500 mg PO DAILY 04/07/20 [History] Calcium Carbonate [Calcium] 600 mg PO DAILY 04/07/20 [History] Cholecalciferol [Vitamin D3 (25 Mcg = 1000 Iu)] 1,000 unit PO DAILY 04/07/20 [History] Amoxicillin/Potassium Clav [Augmentin 875-125 Tablet] 1 tab PO Q12HR #14 tab 04/09/20 [Rx] Follow up Appointment(s)/Referral(s): Champ Nieto MD [Primary Care Provider] - 04/22/20 11:00 am (Appt is with Roxi PEREZ) Kim Rocha MD [STAFF PHYSICIAN] - 04/23/20 9:45 am (Appt is with Jadyn Mcdowell NP.) Patient Instructions/Handouts: Rectal Bleeding (DC), Colitis (ED) Discharge Disposition: HOME SELF-CARE
== END 2020-04-09 13:10 | disposition home or self-care (01) ==
LOC: EC 11:26 → 1SOBS 14:48
PROVIDERS: ADMIT Hospitalist; ATTEND Hospitalist
DX: K52.9 Noninfective gastroenteritis and colitis, unspecified (principal); K62.5 Hemorrhage of anus and rectum; R68.83 Chills (without fever); I10 Essential (primary) hypertension; E78.5 Hyperlipidemia, unspecified; E66.9 Obesity, unspecified; Z68.32 Body mass index [BMI] 32.0-32.9, adult; G47.00 Insomnia, unspecified; Z87.19 Personal history of other diseases of the digestive system; Z90.710 Acquired absence of both cervix and uterus; Z79.899 Other long term (current) drug therapy; Z80.0 Family history of malignant neoplasm of digestive organs; Z80.1 Family history of malignant neoplasm of trachea, bronchus and lung; Z80.8 Family history of malignant neoplasm of other organs or systems
CPT/HCPCS: 96361 ×4; 96366 ×3; 96365; 96375; 99285; 36415; 86900; 86901; 80053; 83605; 83735; 84484; 85025 ×2; 85610; 85730; 86850; 82272; 74177; G0378 ×3; J2543 ×3; C9113; Q9967

== ENCOUNTER → 2020-09-28 | Outpatient (CLI) | payer MEDICARE, OTHER ==
--- NOTE | 2020-09-29 14:42 | BD ---
EXAMINATION TYPE: Axial Bone Density DATE OF EXAM: 09/28/2020 COMPARISON: NONE CLINICAL HISTORY: Postmenopausal Height: 5 FT 1 IN Weight: 168 FRAX RISK QUESTIONS: Alcohol (3 or more units per day): NO Family History (Parent hip fracture): NO Glucocorticoids (More than 3mos): NO (Ex: prednisone, prednisolone, methylprednisolone, dexamethasone, and hydrocortisone). History of Fracture in Adulthood: YES Secondary Osteoporosis: 1. Type 1 Diabetes: NO 2. Hyperthyroidism: NO 3. Menopause before 45: NO 4. Malnutrition: NO 5. Chronic liver disease: NO Rheumatoid Arthritis: NO Current Tobacco Use: NO RISK FACTORS HISTORY OF: Surgery to Spine/Hip(right/left)/Wrist (right/left): NO Family History of Osteoporosis: NO Active: YES Diet low in dairy products/other sources of calcium: NO Postmenopausal woman: APPROX 48 Take estrogen and/or progesterone medications: NO Lost more than 2 inches in height since high school: NO MEDICATIONS: Additional Medications: ATORVASTATIN, BLOOD PRESSURE MEDS Additional History: EXAM MEASUREMENTS: Bone mineral densitometry was performed using the [employer] System. Bone mineral density as measured about the Lumbar spine is: ----- L1-L4(G/cm2): 1.044 T Score Values are as follows: ----- L2: -0.1 ----- L3: -1.6 ----- L4: -1.9 ----- L1-L4: -1.1 Bone mineral density has: DECREASED -7.6 % since study of: 2010 Bone mineral density about the R hip (g/cm2): 0.876 Bone mineral density about the L hip (g/cm2): 0.853 T Score values are as follows: -----R Neck: -1.2 -----L Neck: -1.3 -----R Total: -0.9 -----L Total: -1.2 Bone mineral density has: DECREASED -10.2 % since study of: 2010 IMPRESSION: Osteopenia (T Score between -2.5 and -1). There is slightly increased risk of fracture and the patient may be considered for treatment. Re-Screen 2-5 years. NOTE: T-SCORE=SD OF THE YOUNG ADULT MEAN.
== END | disposition home or self-care (01) ==
LOC: RADBDWWP 09:52
PROVIDERS: ATTEND Family Medicine
DX: Z13.820 Encounter for screening for osteoporosis (principal); M85.80 Other specified disorders of bone density and structure, unspecified site
CPT/HCPCS: 77080

== ENCOUNTER → 2022-08-14 | Outpatient (CLI) | payer MEDICARE, OTHER ==
--- NOTE | 2022-08-15 21:28 | MR ---
EXAMINATION TYPE: MR shoulder RT wo con DATE OF EXAM: 08/14/2022 COMPARISON: Radiograph 03/10/2019 HISTORY: 77-year-old female M25.511 Neck and Rt shoulder pain TECHNIQUE: Multiplanar, multisequence imaging of the right shoulder is performed without contrast. FINDINGS: The long head biceps tendon is abnormally thickened with abnormal intrinsic signal. It is medially taveras bluxed out of the bicipital groove. A longitudinal split tear and moderate tenosynovial fluid. There is a high-grade articular sided tear of the subscapularis tendon allowing for the medial sublux ation of the lung head biceps tendon. Moderate to severe degenerative change of the acromioclavicular joint with joint space narrowing, sub chondral irregularity, capsular edema, and prominent marginal spurring. Spurring mildly impinges onto the underlying cuff. There is mild fluid within the subacromial/subdeltoid bursa. Diffuse thickening and heterogeneity of both supraspinatus and infraspinatus tendons. There is either a high-grade bursal sided versus nondisplaced full-thickness tear of the anterior sup raspinatus tendon measuring 1.5 cm long and 1.3 cm AP. Additional scattered intrasubstance change is present throughout the supraspinatus and infraspinatus tendons. Minimal fatty streaks throughout the rotator cuff musculature. No significant fatty atrophy. Diffusely degenerative and torn superior labrum. Mild thinning of the glenohumeral joint articular cartilage with mild inferior spurring. Small glenoh umeral joint effusion. No Hill-Sachs deformity or os acromiale. No suspicious bone marrow replacement. IMPRESSION: 1. Severe diffuse rotator cuff tendinosis. There is either a high-grade bursal sided versus nondispla sage full-thickness tear of the anterior supraspinatus tendon measuring 1.5 x 1.3 cm. 2. In addition, there is a significant high-grade articular sided tear of the subscapularis tendon. 3. This allows for medial subluxation of the severely tendinotic long head biceps tendon. The extraca psular portion contains a longitudinal split tear. 4. 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 5. Degenerative and torn superior labrum.
== END | disposition home or self-care (01) ==
LOC: RADMRIMAIN 13:29
PROVIDERS: ATTEND Orthopaedic Surgery Sports Medicine
DX: M19.011 Primary osteoarthritis, right shoulder (principal); M25.811 Other specified joint disorders, right shoulder; M67.813 Other specified disorders of tendon, right shoulder; M75.41 Impingement syndrome of right shoulder; S46.011D Strain of muscle(s) and tendon(s) of the rotator cuff of right shoulder, subsequent encounter; M50.322 Other cervical disc degeneration at C5-C6 level; M50.323 Other cervical disc degeneration at C6-C7 level; S43.081D Other subluxation of right shoulder joint, subsequent encounter; S43.431D Superior glenoid labrum lesion of right shoulder, subsequent encounter; X58.XXXD Exposure to other specified factors, subsequent encounter

== ENCOUNTER → 2024-03-19 | Outpatient (CLI) | payer MEDICARE | END | disposition home or self-care (01) | LOC: LABWHC1 09:58 | PROVIDERS: ATTEND Family Medicine | DX: E11.9 Type 2 diabetes mellitus without complications (principal) | CPT/HCPCS: 36415; 83036 ==

== ENCOUNTER → 2024-08-18 | Outpatient (CLI) | payer MEDICARE ==
[2024-08-18 11:49] LABS: Appearance,Urine Clear (Clear); Bilirubin,Urine Negative (Negative); Blood,Urine Negative (Negative); Color,Urine Yellow; Glucose,Urine (UA) Negative (Negative); Ketones,Urine Negative (Negative); Leukocyte Esterase,Urine Moderate (Negative); Mucus,Urine Few /hpf; Nitrite,Urine Negative (Negative); Protein,Urine Negative (Negative); RBC,Urine 1 /hpf (0-5); Specific Gravity,Urine 1.022 (1.001-1.035); Squamous Epithelial Cell,Urine 2 /hpf (0-4); Urobilinogen,Urine <2.0 mg/dL (<2.0); WBC,Urine 2 /hpf (0-5)
[2024-08-18 16:52] LABS: Basophils # (A) 0.05 X 10*3/uL (0.00-0.10); Basophils % (A) 0.7 %; Eosinophils # (A) 0.38 X 10*3/uL (0.04-0.35); Eosinophils % (A) 5.2 %; HCT 42.1 % (37.2-46.3); HGB 13.5 g/dL (12.0-15.0); Lymphocytes # (A) 1.72 X 10*3/uL (0.90-5.00); Lymphocytes % (A) 23.6 %; MCH 30.1 pg (27.0-32.0); MCHC 32.1 g/dL (32.0-37.0); Mean Platelet Volume 10.8 FL (9.5-12.2); Monocytes # (A) 0.45 X 10*3/uL (0.20-1.00); Monocytes % (A) 6.2 %; NRBC Per 100 WBC 0 X 10*3/uL (0.00-0.01); Neutrophils # (A) 4.66 X 10*3/uL (1.80-7.70); Platelet Count 253 X 10*3/uL (140-440); RBC 4.48 X 10*6/uL (4.10-5.20); RDW 12.1 % (11.5-14.5); WBC 7.28 X 10*3/uL (4.50-10.00)
[2024-08-18 16:59] LABS: ALT 19 U/L (8-44); AST 25 U/L (13-35); Albumin 4.2 g/dL (3.8-4.9); Albumin/Globulin Ratio 1.83 Ratio (1.60-3.17); Alkaline Phosphatase 64 U/L (41-126); BUN/Creat Ratio 21.88 Ratio (12.00-20.00); Blood Urea Nitrogen 17.5 mg/dL (9.0-27.0); Calcium 9.9 mg/dL (8.7-10.3); Carbon Dioxide 25.7 mmol/L (21.6-31.8); Chloride 105 mmol/L (96-109); Chol/HDL Ratio 2.89 Ratio; Globulin 2.3 g/dL (1.6-3.3); Glucose 133 mg/dL (70-110); LDL Cholesterol,Calculated 69.9 mg/dL (0.0-131.0); Potassium 4.2 mmol/L (3.5-5.5); Sodium 141 mmol/L (135-145); Total Bilirubin 0.3 mg/dL (0.3-1.2); Total Protein 6.5 g/dL (6.2-8.2)
== END | disposition home or self-care (01) ==
LOC: LABWHC1 10:16
PROVIDERS: ATTEND Physician Assistant
DX: I10 Essential (primary) hypertension (principal); E11.9 Type 2 diabetes mellitus without complications; E78.2 Mixed hyperlipidemia
CPT/HCPCS: 36415; 80053; 80061; 81001; 83036; 84443; 85025

== ENCOUNTER → 2024-09-08 | Outpatient (CLI) | payer MEDICARE ==
--- NOTE | 2024-09-08 22:03 | US ---
EXAMINATION TYPE: US pelvis complete transvag DATE OF EXAM: 09/08/2024 COMPARISON: CT( CLINICAL INDICATION: Female, 79 years old with history of R10.2 PELVIC PAIN; pelvic pain x TECHNIQUE: Transvaginal (TV) and Transabdominal (TA) . Transabdominal grayscale sonographic images of the pelvis were acquired. Transvaginal sonographic im ages were medically necessary to better assess the following anatomy: Doppler imaging: Color Doppler Images were obtained. Spectral doppler images were obtained. FINDINGS: EXAM MEASUREMENTS: Uterus: Surgically absent cm Endometrial Stripe: Surgically absent cm Pt had hysterectomy several years ago, pt says she has both ovaries pt experiencing most left sided p elvic/vaginal pain, burning sensation when urinating Difficult visualization due to overlying bowel 1. Uterus: Surgically absent 2. Endometrium: Surgically absent 3. Right Ovary: Unable to confidently differentiate Rt ovary Hypoechoic areas seen within Rt adnexa: 1. 2.3x0.8x2.4cm 2. 1.7x0.7x2.2cm Both areas show spectral flow, ? Rt ovary 4. Left Ovary: Unable to confidentially differentiate: ? Lt ovary: 1.6x1.1x1.3cm, spectral doppler seen 5. Bilateral Adnexa: wnl IMPRESSION: 1. There may be bilateral residual ovaries present. There may be hypoechoic areas within the right ov charlie. O-RADS 2021 [email or web address] [facility], , 09/08/2024 10:01 PM
== END | disposition home or self-care (01) ==
LOC: RADUSWWP 13:11
PROVIDERS: ATTEND Family Medicine
DX: R10.2 Pelvic and perineal pain (principal)
CPT/HCPCS: 76830; 76856; 93975